=== PATIENT | male | born 1975 | race Caucasian/White ===

== ENCOUNTER 2016-07-01 11:55 | Inpatient (IN) | payer MEDICARE, MEDICAID ==
[~2016-07-01] VITALS: Ht 195.6 cm; Wt 81.6 kg
[~2016-07-01 11:55] MED LIST: ATOR20TA65 PO; CARV6.2548 PO; FAMO20TA8 PO; LEVO25TA7 PO; LISI-186 PO; METO-293 PO; OMEP20CA10 PO; PANT40TA4 PO; RIVA20TA PO; T3 PO
[2016-07-01] MEDS ORDERED: KETOROLAC 30MG/ML VIAL IV STA (13:07)
[2016-07-01] MEDS ORDERED: ASPIRIN 81MG TABLET PO STA (13:07)
[2016-07-01 13:38] LABS: BASOPHILS % 0.7 % (0.0-2.0); EOSINOPHILS % 0.3 % (0.0-5.0); HEMATOCRIT. 37.6 % (42.0-52.0); HEMOGLOBIN. 12.6 g/dL (14.0-18.0); LYMPHOCYTES % 20.8 % (20.0-50.0); MEAN CORPUSCULAR HGB CONC 33.6 g/dL (31.0-37.0); MEAN CORPUSCULAR VOLUME 92.2 fL (80.0-94.0); MEAN PLATELET VOLUME 8.4 fl (7.4-10.4); MONOCYTES % 5.5 % (2.0-8.0); NEUTROPHILS % 72.7 % (40.0-76.0); PLATELET 188 x1000/uL (130-400); RED BLOOD CELL COUNT 4.08 mill/uL (4.7-6.1); RED CELL DISTRIBUTION WIDTH 14.5 % (11.6-14.6); WHITE BLOOD COUNT 7.5 x1000/uL (4.5-11.0)
[2016-07-01 13:44] LABS: INR 1.1; PARTIAL THROMBOPLASTIN TIME 25.9 sec (24.0-34.0); PROTHROMBIN TIME 11.1 sec
[2016-07-01 13:47] LABS: ALANINE AMINOTRANSFERASE 15 IU/L (13-61); ALBUMIN 3.8 g/dL (3.4-5.0); ANION GAP 18; CALCIUM 9.4 mg/dL (8.5-10.1); CARBON DIOXIDE 26 mEq/L (21-32); CHLORIDE 100 mEq/L (98-107); INDEX HEMOLYSI 1 (1-3); INDEX ICTERIC 1 (1-4); INDEX LIPEMIC 1 (1-3); LIPASE 205 IU/L (73-393); UREA NITROGEN BLOOD 21 mg/dL (7-21); eGFR > 60 mL/min (>60)
[2016-07-01 13:51] LABS: TROPONIN I 0.03 ng/mL (0.00-0.04)
[2016-07-01] MEDS ORDERED: DEXTROSE 50% WATER 50ML SYRINGE IV ONE ×2 (14:25→14:30)
[2016-07-01] MEDS ORDERED: ONDANSETRON HCL 4MG/2ML VIAL IV ONE (14:30)
[2016-07-01] MEDS ORDERED: DOCUSATE SODIUM 100MG CAPSULE PO PRN (17:30)
[2016-07-01] MEDS ORDERED: IPRATROPIUM/ALBUTEROL 0.5-3(2.5)MG/3ML NEB INH PRN (17:30)
[2016-07-01] MEDS ORDERED: GUAIFENESIN 200MG/10ML SUGAR FREE UDC PO PRN (17:30)
[2016-07-01] MEDS ORDERED: CLONIDINE 0.1MG TABLET PO PRN (17:30)
[2016-07-01] MEDS ORDERED: MAGNESIUM/ALUMINUM HYDROXIDE/SIMETHICONE 30ML UDC PO PRN (17:30)
[2016-07-01] MEDS ORDERED: ONDANSETRON HCL 4MG/2ML VIAL IV PRN (17:30)
[2016-07-01] MEDS ORDERED: ACETAMINOPHEN 325MG TABLET PO PRN (17:30)
[2016-07-01] MEDS ORDERED: NA PHOS,M-B/NA PHOS,DI-BA ENEMA 118ML PR PRN (17:30)
[2016-07-01] MEDS ORDERED: LORAZEPAM 2MG/ML CPJ IV PRN (17:30)
[2016-07-01] MEDS: DEXT 5%/0.45% NACL 1000ML 1,000 ML IV SCH (18:05)
[2016-07-01 18:13] LABS: CHLORIDE 103 mEq/L (98-107); INDEX HEMOLYSI 1 (1-3); INDEX ICTERIC 1 (1-4); INDEX LIPEMIC 1 (1-3)
[2016-07-01 18:22] LABS: ANION GAP 10; CARBON DIOXIDE 31 mEq/L (21-32); UREA NITROGEN BLOOD 24 mg/dL (7-21)
[2016-07-01 18:23] LABS: eGFR > 60 mL/min (>60)
[2016-07-01 21:00] VITALS: BP 105/73
[2016-07-01] MEDS: HYDROMORPHONE HCL/PF 2MG/ML CPJ IV PRN (22:00)
[2016-07-01] MEDS ORDERED: DEXTROSE 50% WATER 50ML SYRINGE IV PRN (22:45)
[2016-07-02] VITALS: BP 88/51
[2016-07-02] MEDS ORDERED: ACETAMINOPHEN WITH CODEINE 300/30MG TABLET PO PRN (00:15)
[2016-07-02] MEDS: HYDROMORPHONE HCL/PF 2MG/ML CPJ IV PRN ×5 (03:48→20:58)
[2016-07-02 04:00] VITALS: BP 109/72
[2016-07-02] MEDS: LEVOTHYROXINE SODIUM 25MCG TABLET PO SCH (06:26)
[2016-07-02] MEDS: DEXT 5%/0.45% NACL 1000ML 1,000 ML IV SCH (06:26)
[2016-07-02] MEDS: OMEPRAZOLE 20MG CAPSULE EXTENDED RELEASE PO SCH (06:26)
[2016-07-02] MEDS: BLOOD SUGAR DIAGNOSTIC STRIP TEST SCH ×4 (06:27→20:47)
[2016-07-02] MEDS: INSULIN LISPRO 100 UNITS/ML SUBCUT SCH ×4 (06:27→20:47)
[2016-07-02 07:07] LABS: BASOPHILS % 0.4 % (0.0-2.0); EOSINOPHILS % 1.8 % (0.0-5.0); HEMATOCRIT. 36.6 % (42.0-52.0); HEMOGLOBIN. 12.3 g/dL (14.0-18.0); LYMPHOCYTES % 24.9 % (20.0-50.0); MEAN CORPUSCULAR HEMOGLOBIN 31.2 pg (28.0-32.0); MEAN CORPUSCULAR HGB CONC 33.7 g/dL (31.0-37.0); MEAN CORPUSCULAR VOLUME 92.5 fL (80.0-94.0); MEAN PLATELET VOLUME 8.9 fl (7.4-10.4); MONOCYTES % 7.6 % (2.0-8.0); NEUTROPHILS % 65.3 % (40.0-76.0); PLATELET 169 x1000/uL (130-400); RED BLOOD CELL COUNT 3.96 mill/uL (4.7-6.1); RED CELL DISTRIBUTION WIDTH 14.4 % (11.6-14.6); WHITE BLOOD COUNT 6.7 x1000/uL (4.5-11.0)
[2016-07-02 07:43] VITALS: BP 102/66
[2016-07-02 07:54] LABS: ALANINE AMINOTRANSFERASE 17 IU/L (13-61); ALBUMIN 3.7 g/dL (3.4-5.0); ANION GAP 10; CARBON DIOXIDE 31 mEq/L (21-32); CHLORIDE 102 mEq/L (98-107); INDEX HEMOLYSI 1 (1-3); INDEX ICTERIC 1 (1-4); INDEX LIPEMIC 1 (1-3); LDL CHOLESTEROL 87 mg/dL (5-100); TRIGLYCERIDE 64 mg/dL (0-150); UREA NITROGEN BLOOD 24 mg/dL (7-21)
[2016-07-02 07:56] LABS: HDL CHOLESTEROL 44 mg/dL (40-59); TROPONIN I 0.03 ng/mL (0.00-0.04); eGFR > 60 mL/min (>60)
[2016-07-02] MEDS: CARVEDILOL 6.25 MG TABLET PO SCH ×2 (09:00→20:50)
[2016-07-02] MEDS: ENOXAPARIN 40MG/0.4ML SYR SUBCUT SCH (09:00)
[2016-07-02] MEDS: LISINOPRIL 5MG TABLET PO SCH (09:00)
[2016-07-02] MEDS: FAMOTIDINE 20MG TABLET PO SCH ×2 (09:28→17:14)
[2016-07-02] MEDS: PANTOPRAZOLE 40MG DR TABLET PO SCH (09:28)
[2016-07-02] MEDS: METOCLOPRAMIDE HCL 10MG TABLET PO SCH ×3 (09:28→17:14)
[2016-07-02] MEDS: ASPIRIN 81MG EC TABLET PO SCH (09:28)
[2016-07-02 11:43] VITALS: BP 91/59
[2016-07-02 11:43] LABS: T4 FREE 1.47 ng/dL (0.76-1.46); THYROID STIMULATING HORMONE 0.27 mIU/mL (0.36-3.74)
[2016-07-02] MEDS ORDERED: IOHEXOL-350 100 ML BOTTLE ONE (14:15)
[2016-07-02] MEDS ORDERED: SODIUM CHLORIDE 0.9% 10ML VIAL ONE (14:15)
[2016-07-02 15:10] LABS: CREATINE KINASE MB FRACTION 1.4 ng/mL (0.5-3.6); TROPONIN I 0.02 ng/mL (0.00-0.04)
[2016-07-02 15:52] VITALS: BP 110/58
[2016-07-02] MEDS: RIVAROXABAN 20 MG TABLET PO SCH (17:13)
[2016-07-02 18:09] LABS: *AMPHETAMINES SCREEN URINE NEGATIVE (NEGATIVE); *BARBITURATES SCREEN URINE NEGATIVE (NEGATIVE); *BENZODIAZEPINES SCREEN URINE NEGATIVE (NEGATIVE); *COCAINE SCREEN URINE NEGATIVE (NEGATIVE); CANNABINOID URINE SCREEN PRESUMTIVE POSITIVE (NEGATIVE); ECSTASY MDMA SCREEN URINE NEGATIVE (NEGATIVE); METHADONE URINE SCREEN NEGATIVE (NEGATIVE); OPIATES URINE SCREEN PRESUMTIVE POSITIVE (NEGATIVE); PHENCYCLIDINE URINE SCREEN NEGATIVE (NEGATIVE)
[2016-07-02 20:00] VITALS: BP 108/59
[2016-07-02] MEDS: ATORVASTATIN CALCIUM 20MG TABLET PO SCH (20:58)
[2016-07-02 23:28] LABS: CREATINE KINASE MB FRACTION 1.5 ng/mL (0.5-3.6); TROPONIN I 0.03 ng/mL (0.00-0.04)
[2016-07-03] VITALS (7 sets, daily range): BP systolic 99–121; BP diastolic 59–75
[2016-07-03] MEDS: DEXT 5%/0.45% NACL 1000ML 1,000 ML IV SCH ×2 (00:13→16:24)
[2016-07-03] MEDS: HYDROMORPHONE HCL/PF 2MG/ML CPJ IV PRN ×8 (00:13→23:58)
[2016-07-03] MEDS: INSULIN LISPRO 100 UNITS/ML SUBCUT SCH ×4 (06:21→20:22)
[2016-07-03] MEDS: BLOOD SUGAR DIAGNOSTIC STRIP TEST SCH ×4 (06:21→20:22)
[2016-07-03] MEDS: OMEPRAZOLE 20MG CAPSULE EXTENDED RELEASE PO SCH (06:22)
[2016-07-03] MEDS: LEVOTHYROXINE SODIUM 25MCG TABLET PO SCH (06:22)
[2016-07-03 07:21] LABS: CREATINE KINASE MB FRACTION 1.2 ng/mL (0.5-3.6); TROPONIN I 0.03 ng/mL (0.00-0.04)
[2016-07-03] MEDS: PANTOPRAZOLE 40MG DR TABLET PO SCH (08:45)
[2016-07-03] MEDS: FAMOTIDINE 20MG TABLET PO SCH ×2 (08:46→16:26)
[2016-07-03] MEDS: LISINOPRIL 5MG TABLET PO SCH (08:46)
[2016-07-03] MEDS: ASPIRIN 81MG EC TABLET PO SCH (08:46)
[2016-07-03] MEDS: METOCLOPRAMIDE HCL 10MG TABLET PO SCH ×3 (08:46→16:26)
[2016-07-03] MEDS: CARVEDILOL 6.25 MG TABLET PO SCH ×2 (08:46→20:15)
[2016-07-03] MEDS: ENOXAPARIN 40MG/0.4ML SYR SUBCUT SCH (08:47)
[2016-07-03] MEDS: RIVAROXABAN 20 MG TABLET PO SCH (16:27)
[2016-07-03] MEDS: ATORVASTATIN CALCIUM 20MG TABLET PO SCH (20:16)
[2016-07-04] MEDS: HYDROMORPHONE HCL/PF 2MG/ML CPJ IV PRN ×3 (04:22→11:58)
[2016-07-04] MEDS: DEXT 5%/0.45% NACL 1000ML 1,000 ML IV SCH (04:34)
[2016-07-04] MEDS: BLOOD SUGAR DIAGNOSTIC STRIP TEST SCH ×2 (06:14→11:39)
[2016-07-04] MEDS: LEVOTHYROXINE SODIUM 25MCG TABLET PO SCH (06:30)
[2016-07-04] MEDS: METOCLOPRAMIDE HCL 10MG TABLET PO SCH ×2 (06:30→11:58)
[2016-07-04] MEDS: OMEPRAZOLE 20MG CAPSULE EXTENDED RELEASE PO SCH (06:30)
[2016-07-04] MEDS: INSULIN LISPRO 100 UNITS/ML SUBCUT SCH ×2 (07:40→11:39)
[2016-07-04 08:00] VITALS: BP 131/83
[2016-07-04] MEDS: ASPIRIN 81MG EC TABLET PO SCH (08:20)
[2016-07-04] MEDS: CARVEDILOL 6.25 MG TABLET PO SCH (08:20)
[2016-07-04] MEDS: PANTOPRAZOLE 40MG DR TABLET PO SCH (08:20)
[2016-07-04] MEDS: FAMOTIDINE 20MG TABLET PO SCH (08:20)
[2016-07-04] MEDS: LISINOPRIL 5MG TABLET PO SCH (08:21)
[2016-07-04 12:00] VITALS: BP 110/60
[2016-07-04 12:13] VITALS: BP 110/60
== END 2016-07-04 13:45 | disposition home or self-care (01) | DRG 280 ==
LOC: ER 13:13 → 8WST 13:55
PROVIDERS: ADMIT Internal Medicine; ATTEND Internal Medicine
DX: I21.3 ST elevation (STEMI) myocardial infarction of unspecified site (principal); I50.23 Acute on chronic systolic (congestive) heart failure; I42.9 Cardiomyopathy, unspecified; I50.9 Heart failure, unspecified; F17.210 Nicotine dependence, cigarettes, uncomplicated; I25.10 Atherosclerotic heart disease of native coronary artery without angina pectoris; E78.5 Hyperlipidemia, unspecified; E11.649 Type 2 diabetes mellitus with hypoglycemia without coma; R10.9 Unspecified abdominal pain; I11.0 Hypertensive heart disease with heart failure; E11.51 Type 2 diabetes mellitus with diabetic peripheral angiopathy without gangrene; Z95.5 Presence of coronary angioplasty implant and graft; Z90.49 Acquired absence of other specified parts of digestive tract; Z95.1 Presence of aortocoronary bypass graft; Z89.421 Acquired absence of other right toe(s); Z89.422 Acquired absence of other left toe(s); Z88.1 Allergy status to other antibiotic agents; Z88.8 Allergy status to other drugs, medicaments and biological substances; Z88.5 Allergy status to narcotic agent; Z79.899 Other long term (current) drug therapy; I25.2 Old myocardial infarction; K21.9 Gastro-esophageal reflux disease without esophagitis
CPT/HCPCS: 36415; 71010; 71275; 76775; 80048; 80053; 80061; 80305; 82550; 82553; 82962; 83036; 83690; 83880; 84439; 84443; 84484; 85025; 85379; 85610; 85730; 93005; 93306; 96365; 96375; 99291; A4216; J1170; J1650; J1885; J2405; J8597; Q9967

== ENCOUNTER 2016-07-17 20:49 | Inpatient (IN) | payer MEDICARE, MEDICAID ==
[~2016-07-17] VITALS: Ht 195.6 cm; Wt 88.5 kg
[~2016-07-17 20:49] MED LIST changes: +ACET-3161 PO; -T3 PO
[2016-07-17] MEDS ORDERED: SODIUM CHLORIDE 0.9% 1,000 ML IV ONE (22:23)
[2016-07-17] MEDS ORDERED: PANTOPRAZOLE SODIUM 40 MG/VIAL IV STA (22:23)
[2016-07-17] MEDS ORDERED: ONDANSETRON HCL 4MG/2ML VIAL IV STA (22:23)
[2016-07-17] MEDS ORDERED: MORPHINE SULFATE 4 MG/ML CPJ (NOT FOR IM USE) IV STA (22:23)
[2016-07-17 22:46] LABS: BASOPHILS % 0.5 % (0.0-2.0); HEMATOCRIT. 37.2 % (42.0-52.0); HEMOGLOBIN. 12.5 g/dL (14.0-18.0); LYMPHOCYTES % 9.7 % (20.0-50.0); MEAN CORPUSCULAR HEMOGLOBIN 30.9 pg (28.0-32.0); MEAN CORPUSCULAR HGB CONC 33.6 g/dL (31.0-37.0); MEAN CORPUSCULAR VOLUME 92.1 fL (80.0-94.0); MEAN PLATELET VOLUME 8.2 fl (7.4-10.4); NEUTROPHILS % 84.8 % (40.0-76.0); PLATELET 162 x1000/uL (130-400); RED BLOOD CELL COUNT 4.04 mill/uL (4.7-6.1); RED CELL DISTRIBUTION WIDTH 14.4 % (11.6-14.6); WHITE BLOOD COUNT 12.1 x1000/uL (4.5-11.0)
[2016-07-17 22:50] LABS: INR 1.1; PARTIAL THROMBOPLASTIN TIME 26.1 sec (24.0-34.0); PROTHROMBIN TIME 11.3 sec
[2016-07-17 22:58] LABS: ALANINE AMINOTRANSFERASE 30 IU/L (13-61); ALBUMIN 3.9 g/dL (3.4-5.0); ANION GAP 16; CALCIUM 9.5 mg/dL (8.5-10.1); CARBON DIOXIDE 29 mEq/L (21-32); CHLORIDE 102 mEq/L (98-107); ETHANOL BLOOD < 10 mg/dL; INDEX HEMOLYSI 1 (1-3); INDEX ICTERIC 1 (1-4); INDEX LIPEMIC 1 (1-3); LIPASE 364 IU/L (73-393); NT PRO B-TYPE NATRIURETIC PEP 8013 pg/mL (5-125); TROPONIN I 0.03 ng/mL (0.00-0.04); UREA NITROGEN BLOOD 23 mg/dL (7-21); eGFR > 60 mL/min (>60)
[2016-07-17] MEDS ORDERED: MORPHINE SULFATE 4 MG/ML CPJ (NOT FOR IM USE) IV ONE (23:45)
[2016-07-17] MEDS ORDERED: ONDANSETRON HCL 4MG/2ML VIAL IV ONE (23:45)
[2016-07-18 04:54] LABS: CLARITY URINE CLEAR (CLEAR); COLOR URINE YELLOW (YELLOW); GLUCOSE URINE NEGATIVE (NEGATIVE); KETONES URINE 1+ (NEGATIVE); LEUKOCYTE ESTERASE URINE NEGATIVE (NEGATIVE); NITRITE URINE NEGATIVE (NEGATIVE); OCCULT BLOOD URINE NEGATIVE (NEGATIVE); PH URINE 6.5 (4.5-8.0); PROTEIN URINE 1+ (NEGATIVE); SPECIFIC GRAVITY URINE 1.025 (1.005-1.030)
[2016-07-18 04:56] LABS: BACTERIA URINE NONE SEEN; CALCIUM PHOSPHATE CRYSTALS UR NONE SEEN /lpf; RBC URINE 0-2 /hpf (0-2); SQUAMOUS EPITHELIAL CELL URINE NONE SEEN /lpf (RARE/1+); WAXY CASTS URINE NONE SEEN /lpf; WBC URINE 0-2 /hpf (0-2); YEAST URINE NONE SEEN
[2016-07-18] MEDS ORDERED: ONDANSETRON HCL 4MG/2ML VIAL IV ONE (06:00)
[2016-07-18] MEDS ORDERED: MORPHINE SULFATE 4 MG/ML CPJ (NOT FOR IM USE) IV ONE (06:00)
[2016-07-18] MEDS ORDERED: ACETAMINOPHEN 325MG TABLET PO PRN (09:30)
[2016-07-18] MEDS: SODIUM CHLORIDE 0.9% 1,000 ML IV SCH ×2 (10:30→23:37)
[2016-07-18 10:38] LABS: CHLORIDE 103 mEq/L (98-107); INDEX HEMOLYSI 2 (1-3); INDEX ICTERIC 1 (1-4); INDEX LIPEMIC 1 (1-3); PARTIAL THROMBOPLASTIN TIME 25.4 sec (24.0-34.0); PROTHROMBIN TIME 10.9 sec
[2016-07-18 10:43] LABS: BASOPHILS % 0.4 % (0.0-2.0); EOSINOPHILS % 0.9 % (0.0-5.0); HEMATOCRIT. 36.4 % (42.0-52.0); HEMOGLOBIN. 12.3 g/dL (14.0-18.0); MEAN CORPUSCULAR HEMOGLOBIN 31.1 pg (28.0-32.0); MEAN CORPUSCULAR HGB CONC 33.7 g/dL (31.0-37.0); MEAN CORPUSCULAR VOLUME 92.3 fL (80.0-94.0); MEAN PLATELET VOLUME 8.7 fl (7.4-10.4); MONOCYTES % 4.5 % (2.0-8.0); NEUTROPHILS % 71.2 % (40.0-76.0); PLATELET 152 x1000/uL (130-400); RED BLOOD CELL COUNT 3.95 mill/uL (4.7-6.1); RED CELL DISTRIBUTION WIDTH 14.6 % (11.6-14.6); WHITE BLOOD COUNT 6.3 x1000/uL (4.5-11.0)
[2016-07-18 10:44] LABS: ALANINE AMINOTRANSFERASE 28 IU/L (13-61); ALBUMIN 3.8 g/dL (3.4-5.0); ANION GAP 14; CALCIUM 9.2 mg/dL (8.5-10.1); CARBON DIOXIDE 31 mEq/L (21-32); UREA NITROGEN BLOOD 21 mg/dL (7-21); eGFR > 60 mL/min (>60)
[2016-07-18] MEDS: PANTOPRAZOLE SODIUM 40 MG/VIAL IV SCH ×2 (10:50→20:56)
[2016-07-18] MEDS: MORPHINE SULFATE 2 MG/ML CPJ (NOT FOR IM USE) IV PRN ×4 (10:57→22:57)
[2016-07-18] MEDS: ONDANSETRON HCL 4MG/2ML VIAL IV PRN ×2 (10:58→23:36)
[2016-07-18 11:44] LABS: HEMATOCRIT 35.1 % (42.0-52.0); HEMOGLOBIN 12.2 g/dL (14.0-18.0)
[2016-07-18] MEDS: CARVEDILOL 6.25 MG TABLET PO SCH ×2 (14:16→20:56)
[2016-07-18 15:03] VITALS: BP 117/80
[2016-07-18] MEDS: LEVOTHYROXINE SODIUM 25MCG TABLET PO SCH (15:40)
[2016-07-18 16:32] VITALS: BP 112/71
[2016-07-18 20:00] VITALS: BP 101/64
[2016-07-18] MEDS: ATORVASTATIN CALCIUM 20MG TABLET PO SCH (20:56)
[2016-07-18] MEDS ORDERED: SORBITOL 70% SOLN 30ML PO NR (21:00)
[2016-07-18 21:15] LABS: HEMATOCRIT 32.6 % (42.0-52.0)
[2016-07-19] VITALS (7 sets, daily range): BP systolic 100–152; BP diastolic 64–104
[2016-07-19 00:40] LABS: HEMATOCRIT 38.1 % (42.0-52.0); HEMOGLOBIN 12.5 g/dL (14.0-18.0)
[2016-07-19] MEDS: MORPHINE SULFATE 2 MG/ML CPJ (NOT FOR IM USE) IV PRN ×6 (03:36→23:44)
[2016-07-19] MEDS ORDERED: SORBITOL 70% SOLN 30ML PO NR ×2 (06:00→21:00)
[2016-07-19 06:18] LABS: PARTIAL THROMBOPLASTIN TIME 24.9 sec (24.0-34.0); PROTHROMBIN TIME 10.8 sec
[2016-07-19 06:30] LABS: BASOPHILS % 0.3 % (0.0-2.0); EOSINOPHILS % 0.3 % (0.0-5.0); HEMATOCRIT. 36.3 % (42.0-52.0); HEMOGLOBIN. 12.3 g/dL (14.0-18.0); LYMPHOCYTES % 11.4 % (20.0-50.0); MEAN CORPUSCULAR VOLUME 91.2 fL (80.0-94.0); MEAN PLATELET VOLUME 8.4 fl (7.4-10.4); MONOCYTES % 3.3 % (2.0-8.0); NEUTROPHILS % 84.7 % (40.0-76.0); PLATELET 157 x1000/uL (130-400); RED BLOOD CELL COUNT 3.98 mill/uL (4.7-6.1); RED CELL DISTRIBUTION WIDTH 14.6 % (11.6-14.6); WHITE BLOOD COUNT 7.2 x1000/uL (4.5-11.0)
[2016-07-19] MEDS: ONDANSETRON HCL 4MG/2ML VIAL IV PRN (06:56)
[2016-07-19 07:12] LABS: ALANINE AMINOTRANSFERASE 25 IU/L (13-61); ALBUMIN 3.5 g/dL (3.4-5.0); ANION GAP 12; CALCIUM 9.3 mg/dL (8.5-10.1); CARBON DIOXIDE 30 mEq/L (21-32); CHLORIDE 106 mEq/L (98-107); INDEX HEMOLYSI 1 (1-3); INDEX ICTERIC 1 (1-4); INDEX LIPEMIC 1 (1-3); IRON 60 ug/dL (50-175); TOTAL IRON BINDING CAPACITY 366 ug/dL (250-450); UREA NITROGEN BLOOD 22 mg/dL (7-21); eGFR > 60 mL/min (>60)
[2016-07-19] MEDS: LEVOTHYROXINE SODIUM 25MCG TABLET PO SCH ×2 (07:40→09:06)
[2016-07-19] MEDS ORDERED: NA PHOS,M-B/NA PHOS,DI-BA ENEMA 118ML PR NR (09:00)
[2016-07-19] MEDS: CARVEDILOL 6.25 MG TABLET PO SCH ×3 (09:00→21:00)
[2016-07-19] MEDS: PANTOPRAZOLE SODIUM 40 MG/VIAL IV SCH ×2 (09:00→21:55)
[2016-07-19] MEDS: LISINOPRIL 5MG TABLET PO SCH (09:00)
[2016-07-19] MEDS: SODIUM CHLORIDE 0.9% 1,000 ML IV SCH ×3 (12:21→21:55)
[2016-07-19 12:41] LABS: HEMATOCRIT 35.3 % (42.0-52.0); HEMOGLOBIN 11.8 g/dL (14.0-18.0)
[2016-07-19 18:52] LABS: HEMATOCRIT 35.6 % (42.0-52.0)
[2016-07-19] MEDS: ATORVASTATIN CALCIUM 20MG TABLET PO SCH (21:55)
[2016-07-20 04:00] VITALS: BP 109/67
[2016-07-20] MEDS: MORPHINE SULFATE 2 MG/ML CPJ (NOT FOR IM USE) IV PRN ×3 (04:45→21:42)
[2016-07-20] MEDS ORDERED: SORBITOL 70% SOLN 30ML PO NR ×2 (06:00→16:00)
[2016-07-20 08:00] VITALS: BP 106/71
[2016-07-20] MEDS: ONDANSETRON HCL 4MG/2ML VIAL IV PRN ×2 (08:30→23:05)
[2016-07-20] MEDS: PANTOPRAZOLE SODIUM 40 MG/VIAL IV SCH ×2 (08:30→21:53)
[2016-07-20] MEDS: LEVOTHYROXINE SODIUM 25MCG TABLET PO SCH (08:30)
[2016-07-20] MEDS: CARVEDILOL 6.25 MG TABLET PO SCH ×2 (08:38→21:54)
[2016-07-20] MEDS: LISINOPRIL 5MG TABLET PO SCH (08:38)
[2016-07-20] MEDS ORDERED: NA PHOS,M-B/NA PHOS,DI-BA ENEMA 118ML PR NR ×2 (09:00→20:00)
[2016-07-20 11:20] VITALS: BP 108/66
[2016-07-20 12:00] VITALS: BP 90/56
[2016-07-20 16:00] VITALS: BP 96/58
[2016-07-20] MEDS: SODIUM CHLORIDE 0.9% 1,000 ML IV SCH (17:07)
[2016-07-20 20:00] VITALS: BP 125/91
[2016-07-20] MEDS: SORBITOL 70% SOLN 30ML PO NR (21:53)
[2016-07-20] MEDS: ATORVASTATIN CALCIUM 20MG TABLET PO SCH (21:53)
[2016-07-21] VITALS: BP 92/70
[2016-07-21] MEDS: SORBITOL 70% SOLN 30ML PO NR (01:04)
[2016-07-21] MEDS: MORPHINE SULFATE 2 MG/ML CPJ (NOT FOR IM USE) IV PRN ×3 (02:05→10:21)
[2016-07-21 02:11] VITALS: BP 131/99
[2016-07-21 04:00] VITALS: BP 116/82
[2016-07-21] MEDS: ONDANSETRON HCL 4MG/2ML VIAL IV PRN (04:22)
[2016-07-21] MEDS ORDERED: NA PHOS,M-B/NA PHOS,DI-BA ENEMA 118ML PR NR (06:00)
[2016-07-21] MEDS ORDERED: SORBITOL 70% SOLN 30ML PO NR (06:00)
[2016-07-21] MEDS: LEVOTHYROXINE SODIUM 25MCG TABLET PO SCH (07:40)
[2016-07-21] MEDS: PANTOPRAZOLE SODIUM 40 MG/VIAL IV SCH (09:00)
[2016-07-21] MEDS: CARVEDILOL 6.25 MG TABLET PO SCH ×2 (09:00→20:55)
[2016-07-21] MEDS: LISINOPRIL 5MG TABLET PO SCH (09:00)
[2016-07-21 10:05] LABS: BASOPHILS % 0.7 % (0.0-2.0); EOSINOPHILS % 0.7 % (0.0-5.0); HEMATOCRIT. 38.3 % (42.0-52.0); HEMOGLOBIN. 12.7 g/dL (14.0-18.0); LYMPHOCYTES % 16.5 % (20.0-50.0); MEAN CORPUSCULAR HEMOGLOBIN 30.7 pg (28.0-32.0); MEAN CORPUSCULAR HGB CONC 33.1 g/dL (31.0-37.0); MEAN CORPUSCULAR VOLUME 92.7 fL (80.0-94.0); MEAN PLATELET VOLUME 8.8 fl (7.4-10.4); MONOCYTES % 4.6 % (2.0-8.0); NEUTROPHILS % 77.5 % (40.0-76.0); PLATELET 169 x1000/uL (130-400); RED BLOOD CELL COUNT 4.13 mill/uL (4.7-6.1); RED CELL DISTRIBUTION WIDTH 14.7 % (11.6-14.6); WHITE BLOOD COUNT 7.7 x1000/uL (4.5-11.0)
[2016-07-21] MEDS: SODIUM CHLORIDE 0.9% 1,000 ML IV SCH (10:23)
[2016-07-21 10:34] LABS: INR 1.1; PARTIAL THROMBOPLASTIN TIME 25.9 sec (24.0-34.0); PROTHROMBIN TIME 11.1 sec
[2016-07-21 10:38] LABS: ANION GAP 13; CALCIUM 9.2 mg/dL (8.5-10.1); CARBON DIOXIDE 26 mEq/L (21-32); CHLORIDE 106 mEq/L (98-107); INDEX HEMOLYSI 1 (1-3); INDEX ICTERIC 1 (1-4); INDEX LIPEMIC 1 (1-3); UREA NITROGEN BLOOD 12 mg/dL (7-21); eGFR > 60 mL/min (>60)
[2016-07-21] MEDS ORDERED: SODIUM CHLORIDE 0.9% 10ML VIAL ONE (11:44)
[2016-07-21] MEDS ORDERED: SIMETHICONE 40 MG/0.6 ML 30ML ONE ×2 (11:44→15:15)
[2016-07-21 12:00] VITALS: BP 126/81
[2016-07-21] MEDS: HYDROMORPHONE HCL/PF 2MG/ML CPJ IV PRN ×2 (14:29→18:53)
[2016-07-21] MEDS ORDERED: MIDAZOLAM HCL 5 MG/5 ML VIAL ONE (15:15)
[2016-07-21] MEDS ORDERED: MIDAZOLAM HCL 5 MG/5 ML VIAL IV PRN (15:15)
[2016-07-21] MEDS ORDERED: FENTANYL CITRATE/PF 50MCG/ML 2ML VIAL ONE (15:15)
[2016-07-21] MEDS ORDERED: FENTANYL CITRATE/PF 50MCG/ML 2ML VIAL IV PRN (15:15)
[2016-07-21 18:15] VITALS: BP 128/84
[2016-07-21 20:00] VITALS: BP 95/61
[2016-07-21] MEDS: ATORVASTATIN CALCIUM 20MG TABLET PO SCH (20:54)
[2016-07-22] MEDS: HYDROMORPHONE HCL/PF 2MG/ML CPJ IV PRN ×3 (00:53→14:17)
[2016-07-22] MEDS: SODIUM CHLORIDE 0.9% 1,000 ML IV SCH (03:06)
[2016-07-22 04:00] VITALS: BP 110/68
[2016-07-22 08:00] VITALS: BP 111/67
[2016-07-22] MEDS: ONDANSETRON HCL 4MG/2ML VIAL IV PRN (08:05)
[2016-07-22] MEDS: LEVOTHYROXINE SODIUM 25MCG TABLET PO SCH (08:05)
[2016-07-22] MEDS: PANTOPRAZOLE SODIUM 40 MG/VIAL IV SCH (08:05)
[2016-07-22] MEDS: CARVEDILOL 6.25 MG TABLET PO SCH (09:00)
[2016-07-22] MEDS: LISINOPRIL 5MG TABLET PO SCH (09:00)
[2016-07-22 12:00] VITALS: BP 95/65
[2016-07-22 13:50] VITALS: BP 126/94
[2016-07-22 16:00] VITALS: BP 94/60
[2016-07-22 16:25] VITALS: BP 94/60
== END 2016-07-22 17:58 | disposition home or self-care (01) | DRG 391 ==
LOC: ER 21:11 → 7WST 23:42
PROVIDERS: ADMIT Internal Medicine; ATTEND Internal Medicine
PROC: 0DB68ZX Excision of Stomach, Via Natural or Artificial Opening Endoscopic, Diagnostic (ICD-10-PCS; 2016-07-21)
PROC: 0DJD8ZZ Inspection of Lower Intestinal Tract, Via Natural or Artificial Opening Endoscopic (ICD-10-PCS; principal; 2016-07-21 15:00)
DX: K29.60 Other gastritis without bleeding (principal); K22.6 Gastro-esophageal laceration-hemorrhage syndrome; D62 Acute posthemorrhagic anemia; E11.42 Type 2 diabetes mellitus with diabetic polyneuropathy; G89.29 Other chronic pain; I25.10 Atherosclerotic heart disease of native coronary artery without angina pectoris; I80.9 Phlebitis and thrombophlebitis of unspecified site; K27.9 Peptic ulcer, site unspecified, unspecified as acute or chronic, without hemorrhage or perforation; K31.84 Gastroparesis; D64.9 Anemia, unspecified; E11.51 Type 2 diabetes mellitus with diabetic peripheral angiopathy without gangrene; E03.9 Hypothyroidism, unspecified; E78.5 Hyperlipidemia, unspecified; E11.43 Type 2 diabetes mellitus with diabetic autonomic (poly)neuropathy; F12.90 Cannabis use, unspecified, uncomplicated; F17.210 Nicotine dependence, cigarettes, uncomplicated; I10 Essential (primary) hypertension; K57.30 Diverticulosis of large intestine without perforation or abscess without bleeding; K58.9 Irritable bowel syndrome, unspecified; K59.00 Constipation, unspecified; K64.8 Other hemorrhoids; Z79.01 Long term (current) use of anticoagulants; Z79.899 Other long term (current) drug therapy; Z89.429 Acquired absence of other toe(s), unspecified side; I25.2 Old myocardial infarction; Z95.1 Presence of aortocoronary bypass graft; Z95.5 Presence of coronary angioplasty implant and graft; Z88.6 Allergy status to analgesic agent; Z88.1 Allergy status to other antibiotic agents; Z88.0 Allergy status to penicillin; Z86.718 Personal history of other venous thrombosis and embolism
CPT/HCPCS: 36415; 71010; 80048; 80053; 81001; 82728; 82962; 83540; 83550; 83690; 83880; 84484; 85014; 85018; 85025; 85610; 85730; 86850; 86900; 88305; 88313; 93005; 96361; 96374; 96375; 96376; 99285; A4216; C9113; G0482; J1170; J2250; J2270; J2405; J3010; J7030

== ENCOUNTER 2016-08-10 12:38 | Emergency (ER) | payer MEDICARE, MEDICAID ==
[~2016-08-10] VITALS: Ht 195.6 cm; Wt 84.0 kg
[2016-08-10] MEDS ORDERED: SODIUM CHLORIDE 0.9% 1,000 ML IV ONE ×2 (14:18→16:04)
[2016-08-10] MEDS ORDERED: MAGNESIUM/ALUMINUM HYDROXIDE/SIMETHICONE 30ML UDC PO STA (14:18)
[2016-08-10] MEDS ORDERED: ONDANSETRON HCL 4MG/2ML VIAL IV STA (14:18)
[2016-08-10] MEDS ORDERED: VISCOUS LIDOCAINE 2% 15 ML UDC PO STA (14:18)
[2016-08-10] MEDS ORDERED: DICYCLOMINE HCL 10MG CAPSULE PO ONE (14:30)
[2016-08-10] MEDS ORDERED: FAMOTIDINE 20MG/2ML VIAL IV ONE (14:30)
[2016-08-10 14:35] LABS: BASOPHILS % 0.6 % (0.0-2.0); EOSINOPHILS % 0.2 % (0.0-5.0); HEMATOCRIT. 38.5 % (42.0-52.0); HEMOGLOBIN. 12.9 g/dL (14.0-18.0); LYMPHOCYTES % 11.4 % (20.0-50.0); MEAN CORPUSCULAR HEMOGLOBIN 30.5 pg (28.0-32.0); MEAN CORPUSCULAR HGB CONC 33.4 g/dL (31.0-37.0); MEAN CORPUSCULAR VOLUME 91.3 fL (80.0-94.0); MEAN PLATELET VOLUME 8.3 fl (7.4-10.4); MONOCYTES % 4.4 % (2.0-8.0); NEUTROPHILS % 83.4 % (40.0-76.0); PLATELET 157 x1000/uL (130-400); RED BLOOD CELL COUNT 4.21 mill/uL (4.7-6.1); RED CELL DISTRIBUTION WIDTH 14.2 % (11.6-14.6); WHITE BLOOD COUNT 7.6 x1000/uL (4.5-11.0)
[2016-08-10 14:42] LABS: CHLORIDE 102 mEq/L (98-107); INDEX HEMOLYSI 1 (1-3); INDEX ICTERIC 1 (1-4); INDEX LIPEMIC 1 (1-3)
[2016-08-10 14:50] LABS: ALANINE AMINOTRANSFERASE 18 IU/L (13-61); ALBUMIN 3.9 g/dL (3.4-5.0); ANION GAP 13; CALCIUM 9.3 mg/dL (8.5-10.1); CARBON DIOXIDE 29 mEq/L (21-32); ETHANOL BLOOD < 10 mg/dL; LIPASE 167 IU/L (73-393); UREA NITROGEN BLOOD 23 mg/dL (7-21); eGFR > 60 mL/min (>60)
[2016-08-10] MEDS ORDERED: DICYCLOMINE HCL 10MG CAPSULE PO SCH (15:30)
[2016-08-10] MEDS ORDERED: KETOROLAC 30MG/ML VIAL IV STA (16:04)
[2016-08-10 16:32] LABS: CLARITY URINE CLEAR (CLEAR); COLOR URINE YELLOW (YELLOW); GLUCOSE URINE NEGATIVE (NEGATIVE); KETONES URINE 1+ (NEGATIVE); LEUKOCYTE ESTERASE URINE NEGATIVE (NEGATIVE); NITRITE URINE NEGATIVE (NEGATIVE); OCCULT BLOOD URINE NEGATIVE (NEGATIVE); PH URINE 5.5 (4.5-8.0); PROTEIN URINE 1+ (NEGATIVE); SPECIFIC GRAVITY URINE 1.027 (1.005-1.030)
[2016-08-10 16:43] LABS: *AMPHETAMINES SCREEN URINE NEGATIVE (NEGATIVE); *BARBITURATES SCREEN URINE NEGATIVE (NEGATIVE); *BENZODIAZEPINES SCREEN URINE NEGATIVE (NEGATIVE); *COCAINE SCREEN URINE NEGATIVE (NEGATIVE); CANNABINOID URINE SCREEN PRESUMTIVE POSITIVE (NEGATIVE); ECSTASY MDMA SCREEN URINE NEGATIVE (NEGATIVE); METHADONE URINE SCREEN NEGATIVE (NEGATIVE); OPIATES URINE SCREEN PRESUMTIVE POSITIVE (NEGATIVE); PHENCYCLIDINE URINE SCREEN NEGATIVE (NEGATIVE)
[2016-08-10 16:48] LABS: BACTERIA URINE NONE SEEN; RBC URINE 0-2 /hpf (0-2); SQUAMOUS EPITHELIAL CELL URINE RARE /lpf (RARE/1+); WBC URINE 0-2 /hpf (0-2)
[2016-08-10] MEDS ORDERED: KETOROLAC 30MG/ML VIAL IV ONE (21:15)
[2016-08-10 21:42] VITALS: BP 117/79
== END 2016-08-10 22:00 | disposition home or self-care (01) ==
LOC: ER 12:38
DX: K92.0 Hematemesis (principal); R10.9 Unspecified abdominal pain; K31.84 Gastroparesis; I11.9 Hypertensive heart disease without heart failure; E11.9 Type 2 diabetes mellitus without complications; F17.210 Nicotine dependence, cigarettes, uncomplicated; Z71.6 Tobacco abuse counseling; F12.10 Cannabis abuse, uncomplicated; Z88.1 Allergy status to other antibiotic agents; I25.2 Old myocardial infarction; Z87.19 Personal history of other diseases of the digestive system
CPT/HCPCS: 36415; 74000; 80053; 80305; 81001; 83690; 85025; 96361; 96374; 96375; 96376; 99285; 99406; G0482; J1885; J2405; J3490; J7030

== ENCOUNTER 2016-12-30 17:08 | Emergency (ER) | payer MEDICARE, MEDICAID ==
[~2016-12-30] VITALS: Ht 190.5 cm; Wt 105.0 kg
[2016-12-30 17:15] VITALS: BP 124/87
[2016-12-30] MEDS: KETOROLAC 30MG/ML VIAL IV STA (19:22)
[2016-12-30] MEDS: SODIUM CHLORIDE 0.9% 1,000 ML IV ONE (19:22)
[2016-12-30 20:00] LABS: CHLORIDE 107 mEq/L (98-107)
[2016-12-30 20:01] LABS: BASOPHILS % 0.8 % (0.0-2.0); EOSINOPHILS % 0.6 % (0.0-5.0); HEMATOCRIT. 32.1 % (42.0-52.0); INR 1.1; LYMPHOCYTES % 18.6 % (20.0-50.0); MEAN CORPUSCULAR HEMOGLOBIN 24.9 pg (28.0-32.0); MEAN CORPUSCULAR VOLUME 79.8 fL (80.0-94.0); MONOCYTES % 4.9 % (2.0-8.0); NEUTROPHILS % 75.1 % (40.0-76.0); PLATELET 173 x1000/uL (130-400); PROTHROMBIN TIME 11.7 sec (9.4-11.6); RED BLOOD CELL COUNT 4.02 mill/uL (4.7-6.1); RED CELL DISTRIBUTION WIDTH 16.4 % (11.6-14.6)
[2016-12-30 20:07] LABS: CARBON DIOXIDE 28 mEq/L (21-32)
[2016-12-30 20:10] LABS: TROPONIN I 0.03 ng/mL (0.00-0.04)
[2016-12-30] MEDS: MORPHINE SULFATE 4 MG/ML CPJ (NOT FOR IM USE) IV ONE (22:05)
[2016-12-30] MEDS: ONDANSETRON HCL 4MG/2ML VIAL IV ONE (22:05)
[2016-12-30] MEDS: SODIUM CHLORIDE 0.9% 1000ML BAG (SEPSIS BOLUS) IV ONE (22:05)
[2016-12-30 22:58] LABS: CLARITY URINE CLOUDY (CLEAR); COLOR URINE DARK YELLOW (YELLOW); GLUCOSE URINE NEGATIVE (NEGATIVE); KETONES URINE 1+ (NEGATIVE); LEUKOCYTE ESTERASE URINE NEGATIVE (NEGATIVE); NITRITE URINE NEGATIVE (NEGATIVE); OCCULT BLOOD URINE NEGATIVE (NEGATIVE); PROTEIN URINE 1+ (NEGATIVE)
== END 2016-12-31 00:37 | disposition home or self-care (01) ==
LOC: ER 17:13
DX: M54.9 Dorsalgia, unspecified (principal); D50.9 Iron deficiency anemia, unspecified; E86.0 Dehydration; F17.200 Nicotine dependence, unspecified, uncomplicated; F12.10 Cannabis abuse, uncomplicated; K31.84 Gastroparesis; E11.43 Type 2 diabetes mellitus with diabetic autonomic (poly)neuropathy; I10 Essential (primary) hypertension; Z88.0 Allergy status to penicillin; Z88.5 Allergy status to narcotic agent; Z79.01 Long term (current) use of anticoagulants
CPT/HCPCS: 36415; 71101; 80053; 81001; 83605; 83690; 84484; 85025; 85610; 93005; 96361; 96374; 96375; 99285; 99406; J1885; J2270; J2405; J7030